=== PATIENT | female | born 1995 | race Caucasian/White ===

== ENCOUNTER 2021-11-30 12:30 | Emergency (ER) | payer BC ==
[2021-11-30] MEDS ORDERED: Sodium Chloride 0.9% 1,000 ML IV ONE (13:16)
[2021-11-30] MEDS ORDERED: Acetaminophen/Codeine 120-12 MG/5 ML Soln 5 ML UD Cup PO ONE (13:25)
[2021-11-30] MEDS ORDERED: Ondansetron 4 MG/2 ML SDV IVPUSH ONE (13:26)
[2021-11-30 14:25] LABS: CARBON DIOXIDE,CO2 29.5 mmol/L (21.0-32.0); POTASSIUM,K 3.9 mmol/L (3.5-5.1)
== END 2021-11-30 15:56 | disposition home or self-care (01) ==
LOC: MW.ED 12:30
DX: U07.1 COVID-19 (principal); Z88.0 Allergy status to penicillin
CPT/HCPCS: 36415; 80053; 85025; 86308; 87635; 96374; 99283; A9270; J2405; J7030; U0002

== ENCOUNTER 2022-11-24 01:57 | Emergency (ER) | payer BC ==
[2022-11-24] MEDS ORDERED: Diphtheria,Pertussis(Acell),Tetanus Vaccine 0.5 ML Syringe IM ONE (01:58)
[2022-11-24] MEDS ORDERED: Bacitracin Oint 1 GM U/D Packet TOP STA (02:26)
== END 2022-11-24 02:33 | disposition home or self-care (01) ==
LOC: MW.ED 01:57
DX: S01.112A Laceration without foreign body of left eyelid and periocular area, initial encounter (principal); Z88.5 Allergy status to narcotic agent; Z88.0 Allergy status to penicillin; W26.8XXA Contact with other sharp object(s), not elsewhere classified, initial encounter
CPT/HCPCS: 12011; 99282; 99283